=== PATIENT | female | born 1970 | race Caucasian/White ===

== ENCOUNTER → 2016-10-02 | Outpatient (CLI) | payer BC ==
[~2016-10-02] MED LIST: AMIT100T2 PO; AMIT25TA9 PO; AMT100 PO; AMT25 PO; AMT50 PO; ATOR10TA82 PO; BACL10TA PO; CETI10TA84 PO; CHOL20009 PO; CYAN100020 PO; CYCL5TAB PO; DICL50TA3 PO; EFF/375 PO; EPP3/2 IM; GABA-112 PO; HYDR-4380; HYDR-5688 PO; HYDR12.55 PO; HYDR4TAB2 PO; HYDR4TAB78 PO; IRBE-37 PO; IRBE1TAB50 PO; LISI-461 PO; LISI-729 PO; LRS20 PO; LSN20 PO; MELA1TAB3 PO; MELO7.5T5 PO; NRN300 PO; OMEP20CA9 PO; ONDA4TAB10 SL; RANI150T2 PO; RBX500 PO; RBX750 PO; VLT50 PO; ZNTT/150 PO
[2016-10-02 17:43] LABS: BLOOD UREA NITROGEN 7 mg/dl (7-18); BUN/CREATININE RATIO 8.7 (10-20); CALCIUM 8.7 mg/dl (8.5-10.1); CARBON DIOXIDE 24 mmol/L (21-32); CHLORIDE 106 mmol/L (98-107); CREATININE 0.77 mg/dl (0.60-1.20); GLUCOSE 76 mg/dl (70-99); SODIUM 139 mmol/L (136-145)
== END | disposition home or self-care (01) ==
LOC: C.LABBFT 12:02
PROVIDERS: ATTEND Internal Medicine
DX: K62.89 Other specified diseases of anus and rectum (principal); E78.5 Hyperlipidemia, unspecified; I10 Essential (primary) hypertension

== ENCOUNTER 2016-11-08 21:23 | Emergency (ER) | payer BC, OTHER ==
[~2016-11-08] VITALS: Ht 160 cm; Wt 80.6 kg
[~2016-11-08 21:23] MED LIST changes: -AMIT100T2 PO; -AMIT25TA9 PO; -AMT100 PO; -AMT50 PO; -ATOR10TA82 PO; -BACL10TA PO; -CETI10TA84 PO; -CHOL20009 PO; -CYAN100020 PO; -CYCL5TAB PO; -DICL50TA3 PO; -EFF/375 PO; -EPP3/2 IM; -GABA-112 PO; -HYDR-4380; -HYDR-5688 PO; -HYDR12.55 PO; -HYDR4TAB2 PO; -IRBE-37 PO; -IRBE1TAB50 PO; -LISI-461 PO; -LRS20 PO; -LSN20 PO; -MELA1TAB3 PO; -NRN300 PO; -OMEP20CA9 PO; -ONDA4TAB10 SL; -RANI150T2 PO; -RBX750 PO; -VLT50 PO
[2016-11-08 21:33] VITALS: Ht 160 cm; Wt 80.6 kg
[2016-11-08] MEDS ORDERED: HYDROmorphone INJ 1 MG/ML SYR IM STA (22:25)
[2016-11-08] MEDS ORDERED: PROMETHAZINE HCL INJ 25 MG/ML 1 ML VIAL IM STA (22:25)
[2016-11-08] MEDS ORDERED: DEXAMETHASONE SOD INJ 10 MG/ML VIAL IM ONE (22:30)
--- NOTE | 2016-11-08 22:33 | EMERGENCY ROOM VISIT NOTE ---
History Report prepared by Eddi: Juanpablo Lubin Under the Supervision of: Dr. Lukasz Beasley D.O. First contact with patient: 22:16 Chief Complaint: HEADACHE Stated Complaint: OCCIPITAL NEURALGIA,SEVER HEADACHE, HIGH BP History of Present Illness The patient is a 46 year old female who presents to the Emergency Room with complaints of a constant right sided headache beginning several hours prior to arrival. She currently rates her discomfort as a 10/10 in severity. The patient notes a history of occipital neuralgia, and today's episode is similar to her previous episodes. She states she received a nerve block yesterday on her left side. The patient associates nausea and vomiting with today's symptoms. She states she tried taking Dilaudid today but could not keep the medicine down. 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 A total of 10 systems reviewed and were otherwise negative. Past Medical & Surgical Medical Problems: (1) Knee pain (2) Knee pain (3) Lumb/Lumbosac Disc [place]egen Surgical Problems: (1) H/O dilation and curettage (2) History of appendectomy (3) History of cholecystectomy (4) Tubal ligation status Family History No pertinent family history Social History Smoking Status: Never Smoker Alcohol Use: none Housing Status: lives with family Occupation Status: disabled Current/Historical Medications Scheduled Amitriptyline Hcl (Elavil), 50 MG PO HS Epinephrine (Epipen), 0.3 MG IM UD Lisinopril (Lisinopril), 20 MG PO QAM Methocarbamol (Methocarbamol), 500 MG PO BID Scheduled PRN Cetirizine (Zyrtec), 10 MG PO DAILY PRN for ALLERGIC REACTION Hydrocodone/Acetaminophen 5MG/325MG ([place] 5MG/325MG), 1 TABLET PO q4-6 hours PRN for Pain Hydromorphone Hcl (Dilaudid), 4-8 MG PO Q4 PRN for Pain Meloxicam (Mobic), 15 MG PO DAILY PRN for PRN Ranitidine (Zantac), 150 MG PO DAILY PRN for Heartburn Allergies Coded Allergies: Aspirin (Unverified Allergy, Intermediate, HIVES, 11/08/16) Alcohol (Verified Allergy, Unknown, HIVES, 11/08/16) Amoxicillin (Verified Allergy, Unknown, HIVES, 11/08/16) Azithromycin (Verified Allergy, Unknown, HIVES, 11/08/16) Flu Virus Vaccine (Verified Allergy, Unknown, ANAPHYLAXIS, 11/08/16) [place] (Verified Allergy, Unknown, HIVES, 11/08/16) Tomato (Verified Allergy, Unknown, HIVES, 11/08/16) Physical Exam Vital Signs Date Time Temp Pulse Resp B/P Pulse Ox O2 Delivery O2 Flow Rate FiO2 11/08/16 23:25 36.7 63 18 126/71 94 11/08/16 23:06 63 18 126/71 94 Room Air 11/08/16 21:33 36.7 77 18 140/100 93 Room Air Physical Exam GENERAL: Patient is awake, alert, and very uncomfortable appearing. EYES: The conjunctivae are clear. The pupils are round and reactive. EARS, NOSE, MOUTH AND THROAT: The nose is without any evidence of any deformity. Mucous membranes are moist tongue is midline NECK: The neck is nontender and supple. RESPIRATORY: Normal respiratory effort is noted there is no evidence of wheezing rhonchi or rales CARDIOVASCULAR: Regular rate and rhythm noted there no murmurs rubs or gallops normal S1 normal S2 GASTROINTESTINAL: The abdomen is soft. Bowel sounds are present in all quadrants. Abdomen is nontender MUSCULOSKELETAL/EXTREMITIES: There is no evidence of gross deformity full range of motion is noted in the hips and shoulders SKIN: There is no obvious evidence of any rash. There are no petechiae, pallor or cyanosis noted. NEUROLOGIC: Patient is awake alert and oriented x3 strength is symmetric patellar reflexes are 2+ bilaterally Medical Decision & Procedures Medications Administered Medications (Trade) Dose Ordered Sig/Padma Route Start Time Stop Time Status Last Admin Dose Admin Hydromorphone HCl (Dilaudid Inj) 1 mg NOW STAT IM 11/08/16 22:25 11/08/16 22:26 DC 11/08/16 22:36 1 MG Dexamethasone Sodium Phosphate (Decadron Inj) 10 mg NOW ONCE IM 11/08/16 22:30 11/08/16 22:31 DC 11/08/16 22:35 10 MG Promethazine HCl (Phenergan Inj) 25 mg NOW STAT IM 11/08/16 22:25 11/08/16 22:26 DC 11/08/16 22:35 25 MG ED Course 2221: The patient was evaluated in room C2B. A complete history and physical examination were performed. 5: Ordered Phenergan Inj 25 mg IM, Dilaudid Inj 1 mg IM. 0: Ordered Decadron Inj 10 mg IM. 2330: Upon reevaluation, the patient is doing well. I discussed the results and treatment plan with her. She verbalized agreement of the treatment plan. The patient was discharged home. Medical Decision Etiologies such as migraine headache, meningitis, sinusitis, CO exposure, ICH, SAH, infection, tumor, headache, sinus thrombosis, arterial dissection, as well as others were entertained. Nursing notes reviewed. The patient is a 46-year-old female who presented to the emergency department for an evaluation of headache. The patient has a history of occipital neuralgia and states that she had recent injections which did help with her symptoms. She returns tonight with worsening symptoms. She has no meningismus or fever. She has no focal neurologic deficit. She states that this feels similar to her previous headaches. The patient was treated with pain medication in the emergency department. She was also given antiemetics. On subsequent reevaluation she was feeling much better. She was encouraged to rest and avoid any strenuous activity. She was encouraged to continue all medications as prescribed and follow-up with her primary care physician as well as her primary neurologist as soon as possible. She was also encouraged to return the emergency department immediately if symptoms change worsen or the need arises. Impression Primary Impression: Occipital neuralgia Scribe Attestation The scribe's documentation has been prepared under my direction and personally reviewed by me in its entirety. I confirm that the note above accurately reflects all work, treatment, procedures, and medical decision making performed by me. Departure Information Dispostion Home / Self-Care Referrals Mat Thacker M.D. (PCP) Forms HOME CARE DOCUMENTATION FORM, IMPORTANT VISIT INFORMATION Patient Instructions Headache Pain, My [facility] Additional Instructions Continue all medications as prescribed. Rest and avoid any strenuous activity. Return to the emergency department if symptoms worsen or if the need arises.
[2016-11-08] MEDS ORDERED: LSN20 PO (22:57)
[2016-11-08] MEDS ORDERED: AMT50 PO (22:57)
[2016-11-08 23:25] VITALS: BP 126/71; PULSE 63; TEMP 36.7; O2SAT 94
[2017-01-29] MEDS ORDERED: RBX750 PO (08:30)
[2017-01-29] MEDS ORDERED: AMT100 PO (08:30)
[2017-01-29] MEDS ORDERED: DICL50TA3 PO (08:48)
[2017-02-25] MEDS ORDERED: BACL10TA PO (13:43)
[2017-03-10] MEDS ORDERED: CETI10TA84 PO (07:55)
[2017-03-10] MEDS ORDERED: EPP3/2 IM (07:55)
[2017-03-10] MEDS ORDERED: HYDR-5688 PO (08:45)
[2017-05-05] MEDS ORDERED: IRBE1TAB50 PO (10:17)
[2017-05-05] MEDS ORDERED: AMT50 PO (10:17)
[2017-05-07] MEDS ORDERED: CYAN100020 PO (08:27)
[2017-05-07] MEDS ORDERED: HYDR12.55 PO (08:27)
[2017-05-07] MEDS ORDERED: IRBE-37 PO (08:27)
[2017-05-07] MEDS ORDERED: MELA1TAB3 PO (08:27)
[2017-05-07] MEDS ORDERED: AMIT25TA9 PO (08:27)
[2017-05-07] MEDS ORDERED: BACL10TA PO (08:27)
[2017-05-07] MEDS ORDERED: ATOR10TA88 PO (08:27)
[2017-05-07] MEDS ORDERED: DICL50TA3 PO (08:27)
[2017-05-07] MEDS ORDERED: CHOL20009 PO (08:27)
[2017-05-07] MEDS ORDERED: GABA-112 PO (08:27)
[2017-05-07] MEDS ORDERED: EFF/375 PO (08:27)
[2017-05-07] MEDS ORDERED: CETI10TA84 PO (08:27)
[2017-06-30] MEDS ORDERED: NRN300 PO (09:19)
== END 2016-11-08 23:26 | disposition home or self-care (01) ==
LOC: C.EDB 21:24 → C.EDC 23:26
DX: M54.81 Occipital neuralgia (principal); Z98.51 Tubal ligation status

== ENCOUNTER 2017-03-10 17:18 | Emergency (ER) | payer BC ==
[~2017-03-10] VITALS: Ht 160 cm; Wt 81.0 kg
[~2017-03-10 17:18] MED LIST changes: +AMT100 PO; -AMT25 PO; +BACL10TA PO; +CETI10TA84 PO; +DICL50TA3 PO; +EPP3/2 IM; +HYDR-5688 PO; -HYDR4TAB78 PO; -LISI-729 PO; +LSN20 PO; -MELO7.5T5 PO; -RBX500 PO
[2017-03-10 17:20] VITALS: TEMP 36.5; Ht 160 cm; Wt 81.0 kg
[2017-03-10] MEDS ORDERED: HYDROmorphone INJ 1 MG/ML SYR IM STA (17:34)
[2017-03-10] MEDS ORDERED: PROMETHAZINE HCL INJ 25 MG/ML 1 ML VIAL IM STA (17:34)
[2017-03-10] MEDS ORDERED: DEXAMETHASONE SOD INJ 10 MG/ML VIAL IM ONE (17:45)
--- NOTE | 2017-03-10 17:48 | EMERGENCY ROOM VISIT NOTE ---
History First contact with patient: 17:23 Chief Complaint: HEADACHE Stated Complaint: MIGRAINE, NECK PAIN, THROWING UP History of Present Illness The patient is a 46 year old female who presents to the Emergency Room with complaints of a migraine headache which began yesterday. The patient states that she has chronic headaches due to postconcussion syndrome. She initially had an injury in April 2016 which has caused her chronic headaches and neck pain. The patient currently sees pain management, neurology and a neuropsychologist for her symptoms. She has seen orthopedics in the past. She has had MRIs of her brain and neck. She is scheduled for 3 ablations next month. She has had ablations in the past and states she has had relief with them. She called pain management today and states that they are planning to do a nerve block tomorrow, but were not able to get her in today for one. She was instructed to come here for pain control. She rates her discomfort a 9/10. The pain is located throughout her head and in her neck. She has associated vomiting. She states this is typical of her headaches. She took Dilaudid orally this morning without relief. She has previously performed physical therapy, taken steroids and muscle relaxers without relief. She denies any numbness, weakness, recent illnesses, fevers/chills or syncope. Review of Systems A complete 10 point review of systems was reviewed with the patient with pertinent positives and negatives as per history of present illness. All else were negative. Past Medical/Surgical History Medical Problems: (1) Knee pain (2) Knee pain (3) Lumb/Lumbosac Disc Degen Surgical Problems: (1) H/O dilation and curettage (2) History of appendectomy (3) History of cholecystectomy (4) Tubal ligation status Family History No pertinent family history Social History Smoking Status: Never Smoker Alcohol Use: none Housing Status: lives with family Occupation Status: disabled Current/Historical Medications Scheduled Amitriptyline Hcl (Elavil), 100 MG PO HS Baclofen (Baclofen), 20 MG PO BID Lisinopril (Lisinopril), 5 MG PO DAILY Ondasetron Odt (Zofran Odt), 4 MG SL Q6H Scheduled PRN Cetirizine (Zyrtec), 10 MG PO DAILY PRN for ALLERGIC REACTION Diclofenac Sod (Diclofenac Sodium Dr), 50 MG PO Q8 PRN for Pain Epinephrine (Epipen), 0.3 MG IM UD PRN for ALLERGIC REACTION Hydrocodone/Acetaminophen 5MG/325MG ([place] 5MG/325MG), 1 TABLET PO Q6H PRN for Pain Hydromorphone Hcl (Dilaudid), 4-8 MG PO Q4-6HRS PRN for Pain Ranitidine HCl (Ranitidine HCl), 150 MG PO BID PRN for Heartburn Allergies Coded Allergies: Aspirin (Unverified Allergy, Intermediate, HIVES, 11/08/16) Alcohol (Verified Allergy, Unknown, HIVES, 11/08/16) Amoxicillin (Verified Allergy, Unknown, HIVES, 11/08/16) Azithromycin (Verified Allergy, Unknown, HIVES, 11/08/16) Flu Virus Vaccine (Verified Allergy, Unknown, ANAPHYLAXIS, 11/08/16) [place] (Verified Allergy, Unknown, HIVES, 11/08/16) Tomato (Verified Allergy, Unknown, HIVES, 11/08/16) Physical Exam Vital Signs Date Time Temp Pulse Resp B/P (MAP) Pulse Ox O2 Delivery O2 Flow Rate FiO2 03/10/17 18:40 75 16 146/98 97 Room Air 03/10/17 17:20 36.5 82 20 160/104 98 Room Air Physical Exam VITALS: Vitals are noted on the nurse's note and reviewed by myself. Vital signs stable. GENERAL: This is a 46-year-old female, in no acute distress, nondiaphoretic, well-developed well-nourished. HEAD: Normocephalic atraumatic. EARS: External auditory canals clear, tympanic membranes pearly garzon without erythema or effusion bilaterally. EYES: Pupils equal round and reactive to light and accommodation. Conjunctivae without injection, sclerae without icterus. Extraocular movements intact. MOUTH: Mucous membranes moist. Tonsils are not enlarged. Pharynx without erythema or exudate. NECK: Supple without nuchal rigidity. No lymphadenopathy. Cervical spine is nontender. HEART: Regular rate and rhythm without murmurs gallops or rubs. LUNGS: Clear to auscultation bilaterally without wheezes, rales or rhonchi. MUSCULOSKELETAL: Full range of motion throughout. Strength 5/5 throughout. NEURO: Patient was alert and oriented to person place and time. Normal sensation to light and sharp touch. No focal neurological deficits. Medical Decision & Procedures Medications Administered Medications (Trade) Dose Ordered Sig/Padma Route Start Time Stop Time Status Last Admin Dose Admin Hydromorphone HCl (Dilaudid Inj) 1 mg NOW STAT IM 03/10/17 17:34 03/10/17 17:39 DC 03/10/17 17:50 1 MG Promethazine HCl (Phenergan Inj) 25 mg NOW STAT IM 03/10/17 17:34 03/10/17 17:39 DC 03/10/17 17:49 25 MG Dexamethasone Sodium Phosphate (Decadron Inj) 10 mg NOW ONCE IM 03/10/17 17:45 03/10/17 17:46 DC 03/10/17 17:50 10 MG ED Course The patient was evaluated as above. Previous records were reviewed. Patient was medicated with 1 mg Dilaudid IM, 25 mg Phenergan IM and 10 mg Decadron IM. Patient was reevaluated and felt much better. She has minimal pain at this time. She is comfortable going home to take her usual prescribed medications there. She did ask if I could give her something for nausea, as she becomes nauseous when she takes the oral Dilaudid. She will be given a prescription for Zofran. She will keep her follow-up appointments with pain management. Discharge instructions were reviewed with the patient. The patient verbalized understanding of my assessment and treatment plan and was discharged home in good condition. Medical Decision The differential diagnosis includes acute intracranial bleed, meningitis, encephalitis, mass or mass effect, sinusitis, infection, tumor, headache, temporal arteritis and carbon monoxide exposure, and migraine. The patient is a 46-year-old female who presents today complaining of headache and neck pain. Previous records were reviewed. The patient has been seen here multiple times for headaches. She has had extensive workup for her headache and neck pain and now sees pain management. The patient has no new or concerning symptoms. Neurological exam is benign. She was given IM Dilaudid, Decadron and Phenergan with significant relief of her symptoms. She will be given Zofran to take at home with her Dilaudid. She will follow-up with pain management as scheduled. I do not feel that further testing is necessary at this time. The patient was agreeable to this assessment and treatment plan. Based on the patient's presentation and work up, I feel the patient is stable for outpatient treatment. The patient was educated to return to the emergency department for any worsening of their current condition or new/concerning symptoms. She will follow up with pain management and her other specialists as scheduled. Medication reconciliation: I attest that I have personally reviewed the patient 's current medication list. Blood pressure screening: Patient was found to have an elevated blood pressure and was referred to their primary care provider for recheck and further treatment. Impression Primary Impression: Headache Departure Information Dispostion Home / Self-Care Condition GOOD Prescriptions Ondasetron Odt (ZOFRAN ODT) 4 Mg Tab 4 MG SL Q6H for Nausea, #10 TAB Prov: Rima Todd ., VIPUL 03/10/17 Referrals Mat Thacker M.D. (PCP) Patient Instructions My [facility] Additional Instructions You have been treated in the Emergency Department for a Headache. You have received pain medicine in the emergency department which impairs your ability to operate a vehicle. It is illegal for you to drive after receiving these medicines. You should relax in a quiet, dark place for the rest of the day. Avoid any possible triggers including: cigarette smoke, caffeine, nicotine, chocolate, wine, beer, loud noises or music, or bright lights. Follow-up with pain management tomorrow as scheduled. You have been prescribed Zofran to be used for any nausea or vomiting. Take as prescribed. Return to the Emergency Department if your current symptoms worsen despite treatment course outlined above, or if you develop any of the following symptoms : intractable pain despite aforementioned treatment course, visual disturbances , loss of vision, unilateral weakness or facial drooping, slurring of speech, loss of coordination, or loss of consciousness. Problem Qualifiers Primary Impression: Headache Headache type: unspecified Headache chronicity pattern: episodic headache Intractability: not intractable Qualified Codes: R51 - Headache
[2017-03-10] MEDS ORDERED: LISI-461 PO (17:50)
[2017-03-10] MEDS ORDERED: AMIT100T2 PO (17:50)
[2017-03-10] MEDS ORDERED: VLT50 PO (17:50)
[2017-03-10] MEDS ORDERED: RANI150T2 PO (17:50)
[2017-03-10] MEDS ORDERED: LRS20 PO (17:50)
[2017-03-10] MEDS ORDERED: ONDA4TAB10 SL (18:30)
[2017-03-10 18:40] VITALS: BP 146/98; PULSE 75; O2SAT 97
[2017-03-10] MEDS ORDERED: HYDR4TAB2 PO (22:57)
[2017-05-05] MEDS ORDERED: IRBE1TAB50 PO (10:17)
[2017-05-05] MEDS ORDERED: AMT50 PO (10:17)
[2017-05-07] MEDS ORDERED: CHOL20009 PO (08:27)
[2017-05-07] MEDS ORDERED: ATOR10TA82 PO (08:27)
[2017-05-07] MEDS ORDERED: HYDR12.55 PO (08:27)
[2017-05-07] MEDS ORDERED: IRBE-37 PO (08:27)
[2017-05-07] MEDS ORDERED: AMIT25TA9 PO (08:27)
[2017-05-07] MEDS ORDERED: CETI10TA84 PO (08:27)
[2017-05-07] MEDS ORDERED: MELA1TAB3 PO (08:27)
[2017-05-07] MEDS ORDERED: BACL10TA PO (08:27)
[2017-05-07] MEDS ORDERED: DICL50TA3 PO (08:27)
[2017-05-07] MEDS ORDERED: GABA-112 PO (08:27)
[2017-05-07] MEDS ORDERED: CYAN100020 PO (08:27)
[2017-05-07] MEDS ORDERED: EFF/375 PO (08:27)
[2017-06-30] MEDS ORDERED: NRN300 PO (09:19)
== END 2017-03-10 18:47 | disposition home or self-care (01) ==
LOC: C.EDB 17:19 → C.EDC 18:47
DX: R51 Headache (principal); F07.81 Postconcussional syndrome; Z79.899 Other long term (current) drug therapy

== ENCOUNTER → 2017-03-25 | Outpatient (CLI) | payer BC ==
[~2017-03-25] MED LIST changes: +AMIT100T2 PO; +AMIT25TA9 PO; -AMT100 PO; +AMT50 PO; +ATOR10TA82 PO; +CHOL20009 PO; +CYAN100020 PO; +EFF/375 PO; +GABA-112 PO; +HYDR12.55 PO; +HYDR4TAB2 PO; +IRBE-37 PO; +IRBE1TAB50 PO; +LISI-461 PO; +LRS20 PO; -LSN20 PO; +MELA1TAB3 PO; +NRN300 PO; +ONDA4TAB10 SL; +RANI150T2 PO; +VLT50 PO; -ZNTT/150 PO
[2017-03-25 12:21] LABS: BASO % 1.2 %; BASO ABS # 0.09 K/uL (0-0.2); COMPLETE YES; EOS % 2.2 %; HEMATOCRIT 45.8 % (37-47); IG% 0.3 %; LYMPH % 31.6 %; LYMPH ABS # 2.39 K/uL (1.2-3.4); MEAN CELL VOLUME 98.3 fL (80-100); MEAN CORPUSCULAR HEMOGLOBIN 32.4 pg (25-34); MEAN PLATELET VOLUME 9.6 fL (7.4-10.4); NEUT % 55.7 %; PLATELET COUNT 318 K/uL (130-400); RED BLOOD COUNT 4.66 M/uL (4.2-5.4); WHITE BLOOD COUNT 7.57 K/uL (4.8-10.8)
[2017-03-25 14:20] LABS: ALT/SGPT 49 U/L (12-78); AST/SGOT 20 U/L (15-37); BLOOD UREA NITROGEN 13 mg/dl (7-18); BUN/CREATININE RATIO 14.7 (10-20); CARBON DIOXIDE 32 mmol/L (21-32); CHLORIDE 104 mmol/L (98-107); CREATININE 0.87 mg/dl (0.60-1.20); GLUCOSE 78 mg/dl (70-99); POTASSIUM 4.9 mmol/L (3.5-5.1); SODIUM 139 mmol/L (136-145)
[2017-03-25 14:23] LABS: ALKALINE PHOSPHATASE 65 U/L (45-117); CHOLESTEROL 253 mg/dl (0-200); CHOLESTEROL/HDL RATIO 3.6; HDL CHOLESTEROL 71 mg/dl; LDL CHOLESTEROL CALCULATED 168 mg/dl; TRIGLYCERIDES 72 mg/dl (0-150); VERY LOW DENSITY LIPOPROT CALC 14 mg/dl
[2017-03-25 14:30] LABS: CALCIUM 8.9 mg/dl (8.5-10.1)
== END | disposition home or self-care (01) ==
LOC: C.LABBFT 10:08
PROVIDERS: ATTEND Physician Assistant Medical
DX: I10 Essential (primary) hypertension (principal)

== ENCOUNTER → 2017-03-25 | Outpatient (CLI) | payer BC ==
--- NOTE | 2017-03-25 10:15 | DIAGNOSTIC IMAGING REPORT ---
DOPPLER ULTRASOUND OF THE RENAL ARTERIES CLINICAL HISTORY: Hypertension. COMPARISON STUDY: No previous studies for comparison. FINDINGS: The right kidney measures 10.3 cm in maximal dimension and the left measures 10.4 cm. There is no hydronephrosis. The peak systolic velocity within the abdominal aorta was 111 cm/s. The peak systolic velocity within the right renal artery was 118 cm/s and the peak systolic velocities within the left renal artery was 116 cm/s. Segmental waveforms within both kidneys were normal. Both renal veins were patent. IMPRESSION: No evidence of renal artery stenosis. Electronically signed by: Sean Ruiz M.D. 03/25/2017 10:14 AM Dictated Date/Time: 03/25/2017 10:04 AM
== END | disposition home or self-care (01) ==
LOC: C.ULTR 09:23
PROVIDERS: ATTEND Physician Assistant Medical
DX: I10 Essential (primary) hypertension (principal)

== ENCOUNTER → 2017-04-04 | Outpatient (CLI) | payer BC ==
[~2017-04-04] MED LIST changes: -ATOR10TA82 PO; +ATOR10TA88 PO
[2017-04-04 17:50] LABS: URINE APPEARANCE TURBID (CLEAR); URINE COLOR DK YELLOW; URINE EPITHELIAL CELL AUTO >30 /lpf (0-5); URINE NITRITE NEG (NEG); URINE SPECIFIC GRAVITY 1.037 (1.000-1.030); UROBILINOGEN NEG (NEG)
[2017-04-04 18:11] LABS: MANUAL MICROSCOPIC REQUIRED? NO; REVIEW REQ? YES; URINE BILIRUBIN NEG (NEG)
[2017-04-04 18:15] LABS: URINE MUCUS PRESENT (NONE PRSENT)
== END | disposition home or self-care (01) ==
LOC: C.LABPBG 14:04
PROVIDERS: ATTEND Internal Medicine
DX: R31.9 Hematuria, unspecified (principal)

== ENCOUNTER → 2017-04-24 | Outpatient (CLI) | payer BC ==
[2017-04-24 19:04] LABS: LYME DISEASE AB IGM NEG (NEG)
[2017-04-24 21:55] LABS: LYME DISEASE AB IGG NEG (NEG)
--- NOTE | 2017-04-30 09:34 | CODING QUERY MEDICAL NECESSITY ---
SUPPORTING DIAGNOSIS NEEDED Dr. Thacker, A supporting diagnosis is required for the test/procedure performed on this patient in order for us to be reimbursed by the patient's insurance. Please provide a supporting diagnosis for the following test/procedure listed below next to the test name along with your signature. *If there is no additional diagnosis for this patient that would support the following test/procedure please document that below next to the test/procedure. Test(s)/Procedure(s) that require a supporting diagnosis: * ([id number]) VITAMIN D ASSAY DIAGNOSIS: * ([id number]) B12 VITAMIN LEVEL DIAGNOSIS: DATE OF SERVICE: 04/24/17 Provider Signature: Date: Thank you Crow Mess[facility] Once completed, please kindly fax back to [phone] For questions please call [phone]
== END | disposition home or self-care (01) ==
LOC: C.LABBFT 10:44
PROVIDERS: ATTEND Physician Assistant Medical
DX: R41.89 Other symptoms and signs involving cognitive functions and awareness (principal)

== ENCOUNTER → 2017-05-14 | Day surgery (SDC) | payer BC ==
[2017-05-07 08:27] VITALS: Ht 160 cm; Wt 79.1 kg
[~2017-05-14] VITALS: Ht 160 cm; Wt 79.1 kg
[~2017-05-14] MED LIST changes: -AMIT100T2 PO; -AMT50 PO; -EPP3/2 IM; -HYDR-5688 PO; -HYDR4TAB2 PO; -IRBE1TAB50 PO; +LIDOCAINE HCL 2% 2 ML VIAL (20MG/ML) ONE; -LISI-461 PO; -LRS20 PO; -ONDA4TAB10 SL; +PROPOFOL IV EMULSION 10 MG/ML 20 ML VIAL IV ONE; -VLT50 PO
--- NOTE | 2017-05-14 08:29 | Endo History and Physical ---
History & Physical Date of Service: May 14, 2017. Chief Complaint: rectal pain Referring Physician: Dr. Mat Thacker History of Present Illness 46 yo CF who presents for colonoscopy secondary to rectal pain. Past Medical History Reflux, Hypertension Past Surgical History Hx Cardiac Surgery: No Hx Internal Defibrillator: No Hx Pacemaker: No Hx Abdominal Surgery: Yes (APPY, YOVANY, TUBAL LIGATION, PARITAL HYSTERECTOMY) Hx of Implantable Prosthesis: No Hx Post-Op Nausea and Vomiting: No Hx Cancer Surgery: No Hx Thoracic Surgery: No Hx Orthopedic: Yes (LUMBAR DISCECTOMY) Hx Urinary Tract Surgery: No Family History Polyp Social History Smoking Status: Current Every Day Smoker Hx Substance Use: No Hx Alcohol Use: No Allergies Coded Allergies: Aspirin (Verified Allergy, Intermediate, HIVES, 05/14/17) Alcohol (Verified Allergy, Unknown, HIVES, 05/07/17) Amoxicillin (Verified Allergy, Unknown, HIVES, 05/07/17) Azithromycin (Verified Allergy, Unknown, HIVES, 05/07/17) Flu Virus Vaccine (Verified Allergy, Unknown, ANAPHYLAXIS, 05/07/17) [place] (Verified Allergy, Unknown, HIVES, 05/07/17) Tomato (Verified Allergy, Unknown, HIVES, 05/07/17) Current Medications Reported Home Medications Medications Dose Route/Sig Max Daily Dose Days Date Category Dose Instructions Zyrtec (Cetirizine HCl) 10 Mg Tab 10 Mg PO DAILY PRN 05/07/17 Reported Vitamin B12 (Cyanocobalamin) 1,000 Mcg Tab 1 Tab PO QAM 05/07/17 Reported Vitamin D (Cholecalciferol) 2,000 Unit Tab 1 Tab PO QAM 05/07/17 Reported Effexor (Venlafaxine Hcl) 37.5 Mg Tab 37.5 Mg PO QPM 05/07/17 Reported Voltaren (Diclofenac Sodium) 50 Mg Tabec 50 Mg PO BID 05/07/17 Reported Melatonin (Melatonin-Pyridoxine) 1 Tab Tab 5 Mg PO HS PRN 05/07/17 Reported Hydrochlorothiazide 12.5 Mg Tab 1 Tab PO QAM 90 05/07/17 Reported Avapro (Irbesartan) 150 Mg Tab 150 Mg PO QAM 05/07/17 Reported Lipitor (Atorvastatin Calcium) 10 Mg Tab 10 Mg PO HS 05/07/17 Reported Neurontin (Gabapentin) 100 Mg Cap 1 Dose PO TID 05/07/17 Reported 1 TAB IN AM AND AFTERNOON 2 TAB AT HS Lioresal (Baclofen) 10 Mg Tab 10 Mg PO BID 05/07/17 Reported Ranitidine HCl 150 Mg Tab 150 Mg PO QAM 03/10/17 Reported Vital Signs Weight (Kilograms): 79.09 Height (Feet): 5 Height (Inches): 3 Date Time Temp Pulse Resp B/P (MAP) Pulse Ox O2 Delivery O2 Flow Rate FiO2 05/14/17 08:23 36.5 82 18 114/70 (85) 93 Room Air Physical Exam General Appearance: WD/WN, no apparent distress Respiratory/Chest: Auscultation: breath sounds normal Cardiovascular: Heart Auscultation: RRR Abdomen: Bowel Sounds: normal Inspection & Palpation: soft, non-distended, no tenderness, guarding & rebound Assessment and Plan Assessment: 46 yo CF who presents for colonoscopy secondary to rectal pain. Plan: Proceed with colonoscopy.
--- NOTE | 2017-05-14 09:09 | Discharge Instructions ---
Endoscopy Patient Instructions Date / Procedure(s) Performed May 14, 2017. Colonoscopy Allergy Information Coded Allergies: Aspirin (Verified Allergy, Intermediate, HIVES, 05/14/17) Alcohol (Verified Allergy, Unknown, HIVES, 05/07/17) Amoxicillin (Verified Allergy, Unknown, HIVES, 05/07/17) Azithromycin (Verified Allergy, Unknown, HIVES, 05/07/17) Flu Virus Vaccine (Verified Allergy, Unknown, ANAPHYLAXIS, 05/07/17) [place] (Verified Allergy, Unknown, HIVES, 05/07/17) Tomato (Verified Allergy, Unknown, HIVES, 05/07/17) Discharge Date / Findings May 14, 2017. Internal hemorrhoids Medication Instructions OK to resume all medications today as prescribed Reported Home Medications Medications Dose Route/Sig Max Daily Dose Days Date Category Dose Instructions Zyrtec (Cetirizine HCl) 10 Mg Tab 10 Mg PO DAILY PRN 05/07/17 Reported Vitamin B12 (Cyanocobalamin) 1,000 Mcg Tab 1 Tab PO QAM 05/07/17 Reported Vitamin D (Cholecalciferol) 2,000 Unit Tab 1 Tab PO QAM 05/07/17 Reported Effexor (Venlafaxine Hcl) 37.5 Mg Tab 37.5 Mg PO QPM 05/07/17 Reported Voltaren (Diclofenac Sodium) 50 Mg Tabec 50 Mg PO BID 05/07/17 Reported Melatonin (Melatonin-Pyridoxine) 1 Tab Tab 5 Mg PO HS PRN 05/07/17 Reported Hydrochlorothiazide 12.5 Mg Tab 1 Tab PO QAM 90 05/07/17 Reported Avapro (Irbesartan) 150 Mg Tab 150 Mg PO QAM 05/07/17 Reported Lipitor (Atorvastatin Calcium) 10 Mg Tab 10 Mg PO HS 05/07/17 Reported Neurontin (Gabapentin) 100 Mg Cap 1 Dose PO TID 05/07/17 Reported 1 TAB IN AM AND AFTERNOON 2 TAB AT HS Lioresal (Baclofen) 10 Mg Tab 10 Mg PO BID 05/07/17 Reported Ranitidine HCl 150 Mg Tab 150 Mg PO QAM 03/10/17 Reported Provider Instructions Activity Restrictions - No exercising or heavy lifting for 24 hours. - Do not drink alcohol the day of the procedure. - Do not drive a car or operate machinery until the day after the procedure. - Do not make any important decisions or sign important papers in 24 hours after the procedure. Following Day: - Return to full activity which may include returning to work/school. Diet Start your diet with liquids and light foods (jello, soup, juice, toast). Then eat your usual diet if not nauseated. Treatment For Common After Affects For mild abdominal pain, bloating, or excessive gas: - Rest - Eat lightly - Lie on right side Follow-Up Information Follow-up with Dr. Mat Thacker as scheduled Anesthesia Information What You Should Know You have had a procedure that required some medicine to reduce anxiety and discomfort. This treatment is called moderate sedation. After receiving the treatment, you may be sleepy, but you will be able to breathe on your own. The effects of the treatment may last for several hours. Follow these instructions along with Activity/Diet recommendations noted above: * Do NOT do anything where dizziness or clumsiness would be dangerous. * Rest quietly at home today, then you can be up and about tomorrow. * Have a responsible person stay with you the rest of today. * You may have had an I.V. today. If so, you may take the dressing off later today. Recommendations Call your doctor if: * Trouble breathing * Continuous vomiting for more than 24 hours * Temperature above 101 degrees * Severe abdominal pain or bloating * Pain not relieved by pain medicine ordered * There is increased drainage or redness from any incision * A large amount of rectal bleeding greater than 2-3 tablespoons. (If you had a polyp/s removed or have hemorrhoids, a small amount of blood - from the rectum is to be expected.) * You have any unanswered questions or concerns. IN THE EVENT OF A SERIOUS EMERGENCY, GO TO THE NEAREST EMERGENCY ROOM Your discharge instructions were prepared by provider Gordo Kingston. Patient Instructions Signature Page Issac Erazo Patient (or Guardian) Signature/Date: I have read and understand the instructions given to me by my caregivers. Caregiver/RN/Doctor Signature/Date: The above-named patient and/or guardian has received patient instructions on this date. + Original Patient Signature Page (only) stays with chart. Please make copy for patient.
--- NOTE | 2017-05-14 09:12 | Anesthesiology Progress Note ---
Anesthesia Post Op Note Date & Time May 14, 2017 at 09:12 Vital Signs Pain Intensity: 0 Vital Signs Past 12 Hours Date Time Temp Pulse Resp B/P (MAP) Pulse Ox O2 Delivery O2 Flow Rate FiO2 05/14/17 09:01 67 16 103/59 (74) 93 Room Air 67 05/14/17 08:23 36.5 82 18 114/70 (85) 93 Room Air Notes Mental Status: alert / awake / arousable, participated in evaluation Pt Amnestic to Procedure: Yes Nausea / Vomiting: adequately controlled Pain: adequately controlled Airway Patency, RR, SpO2: stable & adequate BP & HR: stable & adequate Hydration State: stable & adequate Anesthetic Complications: no major complications apparent
[2017-05-14 09:30] VITALS: BP 98/67; PULSE 68; O2SAT 99
--- NOTE | 2017-05-14 10:18 | GI REPORT ---
Procedure Date: 05/14/2017 8:24 AM Procedure: Colonoscopy Indications: Rectal pain Medicines: Monitored Anesthesia Care Complications: No immediate complications. Estimated Blood Loss: Estimated blood loss: none. Procedure: Pre-Anesthesia Assessment: - Prior to the procedure, a History and Physical was performed, and patient medications and allergies were reviewed. The patient's tolerance of previous anesthesia was also reviewed. The risks and benefits of the procedure and the sedation options and risks were discussed with the patient. All questions were answered, and informed consent was obtained. Prior Anticoagulants: The patient has taken no previous anticoagulant or antiplatelet agents. ASA Grade Assessment: III - A patient with severe systemic disease. After reviewing the risks and benefits, the patient was deemed in satisfactory condition to undergo the procedure. After I obtained informed consent, the scope was passed under direct vision. Throughout the procedure, the patient's blood pressure, pulse, and oxygen saturations were monitored continuously. The scope was introduced through the anus and advanced to the terminal ileum. The colonoscopy was performed without difficulty. The patient tolerated the procedure well. The quality of the bowel preparation was good. The terminal ileum, ileocecal valve, appendiceal orifice, and rectum were photographed. Findings: Non-bleeding internal hemorrhoids were found during retroflexion. The hemorrhoids were small. The exam was otherwise without abnormality. Impression: - Non-bleeding internal hemorrhoids. - The examination was otherwise normal. - No specimens collected. Recommendation: - Resume previous diet. - Continue present medications. - Repeat colonoscopy in 10 years for surveillance. - Return to primary care physician as previously scheduled. Gordo Kingston DO 05/14/2017 9:05:32 AM This report has been signed electronically. Note Initiated On: 05/14/2017 8:24 AM I attest to the content of the Intraoperative Record and orders documented therein, exceptions below
== END | disposition home or self-care (01) ==
LOC: C.GI 08:01
PROVIDERS: ATTEND Internal Medicine
DX: K62.89 Other specified diseases of anus and rectum (principal); K64.8 Other hemorrhoids; F17.200 Nicotine dependence, unspecified, uncomplicated; Z90.49 Acquired absence of other specified parts of digestive tract; Z90.710 Acquired absence of both cervix and uterus

== ENCOUNTER → 2017-09-10 | Outpatient (CLI) | payer BC ==
[~2017-09-10] MED LIST changes: -AMIT25TA9 PO; +ATOR10TA82 PO; -ATOR10TA88 PO; -CHOL20009 PO; -GABA-112 PO; +GADAVIST IV PRN; -LIDOCAINE HCL 2% 2 ML VIAL (20MG/ML) ONE; -MELA1TAB3 PO; -PROPOFOL IV EMULSION 10 MG/ML 20 ML VIAL IV ONE
--- NOTE | 2017-09-10 08:09 | DIAGNOSTIC IMAGING REPORT ---
MRI OF THE BRAIN WITHOUT AND WITH IV CONTRAST CLINICAL HISTORY: G50.0 Trigeminal neuralgia COMPARISON STUDY: MRI the brain dated 09/12/2016 TECHNIQUE: MRI of the brain was performed from the vertex to the skull base utilizing various T1 and T2 weighted sequences. Following the IV administration of mL of Gadavist contrast, additional enhanced images were obtained. The examination is mildly compromised due to patient motion. FINDINGS: Sagittal T1, axial diffusion, proton density and T2 weighted axial, coronal FLAIR, and pre and post axial T1-weighted images were acquired. These were supplemented with post gadolinium coronal T1 weighted images. The trigeminal protocol was followed. The patient was administered 7.5 cc of intravenous Gadavist. No intra or extra-axial mass lesions are visualized. Axial diffusion-weighted images reveal no evidence of acute or subacute infarction. There is no evidence of ventricular dilatation. Proton density T2-weighted and FLAIR images reveal no significant brachial signal abnormalities. There are no abnormal flow voids. There is no evidence of pathologic enhancement. No trigeminal nerve lesions are visualized. 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 IMPRESSION: 1. Minimal cerebellar tonsillar ectopia 2. Otherwise normal MRI the brain for age. No evidence of intracranial mass. No evidence of acute or subacute infarction. Electronically signed by: Rory Borges M.D. 09/10/2017 8:07 AM Dictated Date/Time: 09/10/2017 8:02 AM
== END | disposition home or self-care (01) ==
LOC: C.MRIBC 06:46
PROVIDERS: ATTEND Psychiatry & Neurology Neurology
DX: E53.8 Deficiency of other specified B group vitamins (principal); E55.9 Vitamin D deficiency, unspecified; G50.0 Trigeminal neuralgia; H02.409 Unspecified ptosis of unspecified eyelid; M79.604 Pain in right leg

== ENCOUNTER → 2017-10-22 | Outpatient (CLI) | payer BC ==
[~2017-10-22] MED LIST changes: -GADAVIST IV PRN
== END | disposition home or self-care (01) ==
LOC: C.LABBFT 12:22
PROVIDERS: ATTEND Physician Assistant Medical
DX: G62.9 Polyneuropathy, unspecified (principal); E55.9 Vitamin D deficiency, unspecified; E53.8 Deficiency of other specified B group vitamins

== ENCOUNTER 2017-12-02 17:46 | Emergency (ER) | payer BC ==
[~2017-12-02] VITALS: Ht 160 cm; Wt 81.0 kg
[~2017-12-02 17:46] MED LIST changes: +BUPRTAB51 PO; -EFF/375 PO
[2017-12-02 17:47] VITALS: TEMP 36.7; Ht 160 cm; Wt 81.0 kg
[2017-12-02] MEDS ORDERED: DEXAMETHASONE INJ 8 MG in SYRINGE 0 ML IV STA (18:06)
[2017-12-02] MEDS ORDERED: DiphenhydrAMINE HCL 50 MG/ML VIAL IV STA (18:06)
[2017-12-02] MEDS ORDERED: PROCHLORPERAZINE 5 MG/ML 2 ML VIAL IV STA (18:06)
[2017-12-02] MEDS ORDERED: SODIUM CHLORIDE 0.9% 1000ML 1,000 ML IV STA (18:06)
--- NOTE | 2017-12-02 18:25 | EMERGENCY ROOM VISIT NOTE ---
ED Visit Note First contact with patient: 17:48 CHIEF COMPLAINT: Migraine headache HISTORY OF PRESENT ILLNESS: This 47-year-old female patient presented to the emergency department, ambulatory, with a gradual onset of a severe generalized headache that started this morning. The patient states the headache is similar to the typical headaches she gets when she is due for temporal ablation. The patient had a fall and suffers from postconcussive syndrome. She gets frequent headaches, and does see neurology and pain management, where she has nerve blocks and ablations of the temporal and occipital regions. She states she last had a temporal ablation approximately 2 weeks ago, and states it did not take and she needs another. She is not scheduled to have another ablation completed until January 22, however she does see her neurologist in 1 week. She has been here in the past with similar headaches, and has been given "a shot. They always look it up when I come." There has been associated photophobia, phonophobia, nausea and vomiting. The patient denies fever or chills recently, and there is no weakness or numbness of the extremities. There is no difficulty with speech or vision. No trauma to the head and no neck pain. The pain is severe, constant, and it is slowly increasing in severity. The patient rates the pain as sharp and throbbing and 9/10. The patient has taken 1 dose of Tylenol without relief. This is not the worst headache of the life and is similar to previous migraines. Previous imaging studies of the brain have been normal. REVIEW OF SYSTEMS: A 10 system review of systems was performed with positives and pertinent negatives listed in the history of present illness. All other systems were reviewed and are negative. ALLERGIES: Amoxicillin, aspirin, flu vaccine, azithromycin MEDICATIONS: Ranitidine, baclofen, Avapro, hydrochlorothiazide, diclofenac, vitamin B12, gabapentin, Wellbutrin, iron, vitamin D PMH: Postconcussive syndrome, silent vision migraine, occipital neuralgia, trigeminal neuralgia, neuropathy SOCIAL HISTORY: The patient lives locally with family. She denies drug, alcohol use. She admits to smoking half a pack of cigarettes per day. PHYSICAL EXAM: Vital Signs: Reviewed Nurse's notes, vital signs stable. GENERAL : This is a 47-year-old white female, who appears in pain, but non toxic in appearance and in no acute distress. MENTAL STATUS: Alert, oriented, and coherent. HEENT: Normocephalic. PERRLA. EOMI. Nares patent without nuchal rigidity. Tympanic membranes pearly garzon without erythema or effusion bilaterally. Mucous membranes moist. NECK: Supple, no nuchal rigidity, nontender, no lymphadenopathy. HEART: Regular rhythm and normal rate without murmurs, ectopy, gallops, or rubs. LUNGS: Clear to auscultation bilaterally without wheezes, rales or rhonchi. No dullness to percussion. No accessory muscle use. No retractions. SKIN: Normal. NEUROLOGICAL: Pupils are round, equal and react to light. The optic fundi are normal and the discs are flat. The patient moves all extremities well and the gait is normal. EMERGENCY DEPARTMENT COURSE: I examined the patient. IV access obtained. The patient was given 1 L normal saline solution, Decadron, Compazine, and Benadryl. I discussed with the patient that I would not like to give her narcotics first line as she is received in the past due to the potential for side effects and short-term treatment of her pain with narcotics. The patient was agreeable. She was reassessed after these medications, and notes significant improvement in her headache from 06/08-01/06. She was given 1 g IV acetaminophen. The patient was reassessed and notes moderate improvement again in her headache. She will be discharged on prednisone to be taken outpatient to help with the headache. All questions were answered to the patient and her satisfaction. Discharge instructions reviewed, the patient was discharged home in good condition with her driving. The differential diagnosis includes acute intracranial bleed, meningitis, encephalitis, mass or mass effect, sinusitis, infection, tumor, headache, temporal arteritis and carbon monoxide exposure, and migraine. DIAGNOSIS: Headache, post-concussion syndrome Problem List Medical Problems: (1) Knee pain Status: Resolved (2) Knee pain Status: Resolved (3) Lumb/Lumbosac Disc Degen Status: Chronic Surgical Problems: (1) H/O dilation and curettage Status: Resolved (2) History of appendectomy Status: Resolved (3) History of cholecystectomy Status: Resolved (4) Tubal ligation status Status: Resolved Current/Historical Medications Scheduled Atorvastatin (Lipitor), 10 MG PO HS Baclofen (Lioresal), 20 MG PO BID Bupropion HCl (Bupropion HCl Sr), 150 MG PO BID Cyanocobalamin (Vitamin B12), 1 TAB PO QAM Diclofenac (Voltaren), 50 MG PO BID Gabapentin (Gabapentin), 600 MG PO TID Hydrochlorothiazide (Hydrochlorothiazide), 1 TAB PO QAM Irbesartan (Avapro), 150 MG PO QAM Ondansetron (Ondansetron Odt), 1 TAB PO PRN UD Prednisone (Prednisone), 0 PO DAILY Ranitidine HCl (Ranitidine HCl), 150 MG PO QAM Scheduled PRN Cetirizine (Zyrtec), 10 MG PO DAILY PRN for PRN Allergies Coded Allergies: Aspirin (Verified Allergy, Intermediate, HIVES, 11/07/17) Alcohol (Verified Allergy, Unknown, HIVES, 11/07/17) Amoxicillin (Verified Allergy, Unknown, HIVES, 11/07/17) Azithromycin (Verified Allergy, Unknown, HIVES, 11/07/17) Flu Virus Vaccine (Verified Allergy, Unknown, ANAPHYLAXIS, 11/07/17) [place] (Verified Allergy, Unknown, HIVES, 11/07/17) Tomato (Verified Allergy, Unknown, HIVES, 11/07/17) Vital Signs Date Time Temp Pulse Resp B/P (MAP) Pulse Ox O2 Delivery O2 Flow Rate FiO2 12/02/17 19:53 69 16 112/73 94 Room Air 12/02/17 17:47 36.7 104 20 157/103 97 Room Air Medications Administered Medications (Trade) Dose Ordered Sig/Padma Route Start Time Stop Time Status Last Admin Dose Admin Sodium Chloride 1,000 ml @ 999 mls/hr Q1H1M STAT IV 12/02/17 18:06 12/02/17 19:06 DC 12/02/17 18:39 999 MLS/HR Diphenhydramine HCl (Benadryl Inj) 25 mg NOW STAT IV 12/02/17 18:06 12/02/17 18:15 DC 12/02/17 18:39 25 MG Dexamethasone Sodium Phosphate 8 mg/Syringe 2 ml @ 1 mls/min NOW STAT IV 12/02/17 18:06 12/02/17 18:15 DC 12/02/17 18:39 1 MLS/MIN Prochlorperazine Edisylate (Compazine Inj) 10 mg NOW STAT IV 12/02/17 18:06 12/02/17 18:15 DC 12/02/17 18:38 10 MG Acetaminophen 1000 mg/Empty Bag 100 ml @ 400 mls/hr NOW STAT IV 12/02/17 19:45 12/02/17 19:59 DC 12/02/17 19:53 400 MLS/HR Departure Information Impression Primary Impression: Headache Additional Impression: Post concussion syndrome Dispostion Home / Self-Care Condition GOOD Prescriptions Prednisone (Prednisone) 20 Mg Tab 0 PO DAILY, #18 TAB 3 DAILY FOR 3 DAYS, THEN 2 DAILY FOR 3 DAYS, THEN 1 DAILY FOR 3 DAYS. Prov: aHven Ornelas PA-C 12/02/17 Referrals Mat Thacker M.D. (PCP) Patient Instructions ED Headache Migraine, [facility] Additional Instructions DO NOT drive, drink alcohol, operate machinery, or perform dangerous activities today. You were given medications in the ER that can affect your ability to safely function or operate a vehicle. Rest today in a quiet, peaceful, dark environment and get a full 8-10 hrs of sleep tonight. Avoid loud noises, smoke/smoking, alcohol, bright lights, stress, or physical exertion today to minimize the chance the headache may return. Continue current medications as prescribed. You have been prescribed Prednisone. This is a steroid which will help decrease your inflammation, redness, and itch. Take this medicine as prescribed. Take the ENTIRE 9 day course. It is best to take steroids early in the morning as PM dosing can affect your sleeping patterns. Acetaminophen(Tylenol) may be used for fever or pain. Use 1000mg every six hours as needed. Avoid using more than 3000mg in a 24 hour period. Return to the ER for passing out, worsening headache, vision problems, neck stiffness/pain, fevers, vomiting, worsening of your condition, or as needed. Follow up with your primary physician in 2-3 days for a recheck of your current condition. Problem Qualifiers Primary Impression: Headache Headache type: other headache syndrome Qualified Codes: G44.89 - Other headache syndrome
[2017-12-02] MEDS ORDERED: DEXAMETHASONE SOD INJ 4 MG/ML VIAL ONE (18:36)
[2017-12-02] MEDS ORDERED: WLLSR150 PO (19:16)
[2017-12-02] MEDS ORDERED: ZFRODT4HP PO (19:16)
[2017-12-02] MEDS ORDERED: GABA-1219 PO (19:16)
[2017-12-02] MEDS ORDERED: ACETAMINOPHEN IV 1,000 MG in EMPTY BAG 0 ML IV STA (19:45)
[2017-12-02] MEDS ORDERED: ACETAMINOPHEN 1000 MG/100 ML IV IV ONE (19:51)
[2017-12-02] MEDS ORDERED: PRED20TA PO (20:08)
[2017-12-02 20:35] VITALS: BP 112/73; PULSE 69; O2SAT 94
== END 2017-12-02 20:36 | disposition home or self-care (01) ==
LOC: C.EDB 17:47
DX: G44.89 Other headache syndrome (principal); M54.81 Occipital neuralgia; G50.0 Trigeminal neuralgia; G62.9 Polyneuropathy, unspecified; F07.81 Postconcussional syndrome; Z79.899 Other long term (current) drug therapy; Z88.1 Allergy status to other antibiotic agents; Z88.6 Allergy status to analgesic agent; Z88.7 Allergy status to serum and vaccine; F17.210 Nicotine dependence, cigarettes, uncomplicated

== ENCOUNTER → 2018-02-09 | Outpatient (CLI) | payer BC ==
[~2018-02-09] MED LIST changes: -BUPRTAB51 PO; +ESCI10TA17 PO; +GABA-1219 PO; +HYDR-5688 PO; -NRN300 PO; +ONDA4TAB46 PO; +WLLSR150 PO
--- NOTE | 2018-02-12 11:45 | POLYSOMNOGRAPH REPORT ---
CLINICAL DATA: A 47-year-old female with a BMI of 31.[address] Thacker for evaluation of possible sleep apnea. The patient has snoring and nocturnal headaches along with cognitive dysfunction. She has seen neurology. On the evening of 02/09/2018, a home sleep apnea test was performed using a [employer] type 3 monitor. RECORDING RESULTS: Total recording time was 10 hours. The patient's monitoring time and estimated sleep time was 7.6 hours. RESPIRATORY DATA: Very mild sleep apnea was documented. The SADA was 6.8. There was 1 obstructive, 2 mixed, and 7 central apneic episodes. There were 42 hypopneic episodes. The longest respiratory event was 34 seconds. OXIMETRY DATA: Nocturnal hypoxemia was seen. Oxygen earl was 81%. Mean saturation was 91%. Time below 89% was 53 minutes. HEART RATE DATA: Heart rates ranged from 60-72 beats per minute. SNORING DATA: Snoring was recording throughout the night. IMPRESSION: Mild sleep apnea/hypopnea with an SADA of 6.8 with nocturnal hypoxemia. RECOMMENDATIONS: The patient may benefit from weight loss, use of an oral appliance, repeat sleep study with CPAP, or sleep medicine consultation. Clinical correlation is needed. MICHELLE
== END | disposition home or self-care (01) ==
LOC: C.NEUR 14:05
PROVIDERS: ATTEND Internal Medicine
DX: R41.89 Other symptoms and signs involving cognitive functions and awareness (principal); R53.83 Other fatigue; I10 Essential (primary) hypertension; R06.83 Snoring